=== PATIENT | female | born 1945 | race Caucasian/White ===

== ENCOUNTER → 2018-08-05 | Outpatient (CLI) | payer MEDICARE, MEDICAID ==
[~2018-08-05] MED LIST: LIDOCAINE 1% Multi-Dose 20 ML VIAL. ONE; LIDOCAINE 1% Multi-Dose 50 ML VIAL. INJ ONE; LIDOCAINE 1%/EPI 1:100,000 20 ML VIAL. INJ ONE; LIDOCAINE 2%/EPI 1:100,000 20 ML VIAL. IJ ONE
--- NOTE | 2018-08-07 10:09 | PATHOLOGY ---
[facility] Accession Number: [id number] . 01 Material submitted: . LT BREAST MASS 12:00, 5 CMFN . 01 Clinical history: . Left breast mass . 02 Diagnosis: Breast tissue, left breast mass needle biopsies: - INVASIVE DUCTAL CARCINOMA, GRADE 2. SEE COMMENT. LBQ/08/06/2018 . 02 Comment: Sections of the left breast mass needle biopsies reveal an invasive mammary carcinoma. The tumor shows fairly good tubule formation and is associated with a reactive desmoplastic stroma. There is focal tumor infiltration of fatty tissue. The tumor shows moderate nuclear pleomorphism and mitotic activity. The invasive tumor measures up to 0.7-0.8 cm in greatest dimension on the glass slide. There are no tumor associated calcifications. There is no lymphovascular tumor invasion. The morphologic findings are supportive of the diagnosis of an invasive ductal carcinoma, grade 2. The case is also examined by Dr. Ponce, who concurs with the diagnosis. Breast prognostic studies will be obtained, the results of which will be reported separately. (JPM/db; 08/06/2018) . This case was prepared and proofread by Dr. Jario Saenz and electronically signed and released by Dr. Krysta Ponce. . 02 Electronically signed: . Krysta Ponce MD, Pathologist NPI- [id number] . 01 Gross description: . The specimen is received in formalin, labeled "Marlene Whitney, left breast mass 5 mm, 12:00 5 cm from nipple", are multiple fibrofatty cores and its fragments measuring 2.0 x 1.5 x 0.4 cm in aggregate. The specimen is entirely submitted in A1-A3. . Specimen excised at: 1250 on 11/7/18, placed in formalin at: 1255 on 08/15/18, formalin exposure: 10 hours and 50 minutes (SWS; 08/05/2018) SHS/SHS . 02 Pathologist provided ICD-10: C50.912 . 02 CPT . 237035 Specimen Comment: A courtesy copy of this report has been sent to Specimen Comment: [phone], , . Specimen Comment: Report sent to ,DR VARNER / DR RODRIGUEZ Specimen Comment: A duplicate report has been generated due to demographic updates. Performed at: 01 [facility] [address], [place] [id number] MD Luis Alberto Randolph MD Phone: [phone] Performed at: 02 [facility] [address] [place], [place] [id number] MD Jairo Saenz MD Phone: [phone]
--- NOTE | 2018-08-19 10:15 | RAD ---
Ultrasound-guided left breast biopsy, 08/05/2018: History: Suspicious breast nodule Outside imaging demonstrated a suspicious nodule at 12:00 location in the left breast. Under local anesthesia, aseptic conditions and sonographic guidance the [employer] biopsy instrument was passed into the margin of this lesion via a lateral approach. Multiple 12-gauge vacuum-assisted core samples were obtained and sent to pathology for evaluation. A biopsy marker was then deposited the biopsy site. The biopsy instrument was removed and hemostasis obtained. Two-view postprocedural digital mammograms were obtained to document position of the biopsy marker which lies within 1 cm of the biopsied lesion. The patient tolerated the procedure well and left the department in good condition. Note: The subsequent pathology report indicated presence of invasive ductal carcinoma. This is considered to be a concordant finding.
== END | disposition home or self-care (01) ==
LOC: US 11:42
PROVIDERS: ATTEND Surgery
DX: C50.812 Malignant neoplasm of overlapping sites of left female breast (principal); Z91.048 Other nonmedicinal substance allergy status; Z85.43 Personal history of malignant neoplasm of ovary; Z90.710 Acquired absence of both cervix and uterus; Z98.890 Other specified postprocedural states; F17.210 Nicotine dependence, cigarettes, uncomplicated
CPT/HCPCS: 19083; 77065; 88305; C1713; 19081; 76942

== ENCOUNTER → 2018-09-07 | Outpatient (CLI) | payer MEDICARE, MEDICAID ==
[~2018-09-07] MED LIST changes: +FLUT9.9S NS; -LIDOCAINE 1% Multi-Dose 20 ML VIAL. ONE; -LIDOCAINE 1% Multi-Dose 50 ML VIAL. INJ ONE; -LIDOCAINE 1%/EPI 1:100,000 20 ML VIAL. INJ ONE; -LIDOCAINE 2%/EPI 1:100,000 20 ML VIAL. IJ ONE
[2018-09-07 11:42] LABS: BASO # 0.1 x10^3/uL (0.0-0.2); BASO % 1 % (0-3); EOS # 0.2 x10^3/uL (0.0-0.7); EOS % 2 % (0-3); HEMATOCRIT 44.9 % (36.0-47.0); HEMOGLOBIN 15.3 g/dL (12.0-15.5); LYMPH % 33 % (24-48); MEAN CORPUSCULAR HEMOGLOBIN 30 pg (25-35); MEAN CORPUSCULAR HGB CONC 34 g/dL (31-37); MEAN CORPUSCULAR VOLUME 87 fL (79-100); MONO # 0.6 x10^3/uL (0.0-1.1); MONO % 7 % (0-9); NEUT # 5.2 x10^3uL (1.8-7.7); NEUT % 57 % (31-73); PLATELET COUNT 221 x10^3/uL (140-400); RED BLOOD COUNT 5.14 x10^6/uL (3.50-5.40); RED CELL DISTRIBUTION WIDTH 14.1 % (11.5-14.5)
[2018-09-07 11:57] LABS: ALBUMIN 3.6 g/dL (3.4-5.0); CALCIUM 9.1 mg/dL (8.5-10.1); GFR 54.7; POTASSIUM 4.2 mmol/L (3.5-5.1)
== END | disposition home or self-care (01) ==
LOC: SURGPAT 10:56
PROVIDERS: ATTEND Surgery
DX: Z01.818 Encounter for other preprocedural examination (principal); C50.912 Malignant neoplasm of unspecified site of left female breast
CPT/HCPCS: 36415; 80048; 82040; 85025